=== PATIENT | female | born 1955 | race Hispanic/Latino ===

== ENCOUNTER 2017-09-24 10:53 | Inpatient (IN) | payer MEDICARE ==
[2017-09-24 11:08] VITALS: BMI 21.9
[2017-09-24] MEDS ORDERED: Sodium Chloride 0.9% 1,000 ML IV STA ×2 (11:56→16:32)
[2017-09-24 13:01] LABS: BASO # 0.1 K/uL (0.0-0.2); BASO % 0.7 % (0.0-2.0); EOS % 0.4 % (0.0-4.0); HEMOGLOBIN 10.4 g/dL (12.0-16.0); LYMPH # 0.6 K/uL (1.0-4.3); LYMPH % 6.1 % (20.0-40.0); MEAN CELL VOLUME 87.6 fl (81.0-99.0); MEAN CORPUSCULAR HEMOGLOBIN 29.4 pg (27.0-31.0); MEAN CORPUSCULAR HGB CONC 33.6 g/dL (33.0-37.0); MEAN PLATELET VOLUME 7.5 fl (7.2-11.7); MONO # 1.3 K/uL (0.0-0.8); MONO % 13.6 % (0.0-10.0); NEUT # 7.4 K/uL (1.8-7.0); NEUT % 79.2 % (50.0-75.0); NRBC % 0.1 % (0.0-0.0); PLATELET COUNT 312 K/uL (130-400); RBC 3.53 Mil/uL (3.80-5.20); RED CELL DISTRIBUTION WIDTH 17.7 % (11.5-14.5); WHITE BLOOD COUNT 9.3 K/uL (4.8-10.8)
[2017-09-24 13:14] LABS: ALBUMIN 3.1 g/dL (3.5-5.0); ALT/SGPT 33 U/L (9-52); AST/SGOT 51 U/L (14-36); BLOOD UREA NITROGEN 5 mg/dl (7-17); CALCIUM 9.9 mg/dL (8.4-10.2); GFR AFRICAN-AMERICAN > 60; GFR NON-AFRICAN AMERICAN > 60
--- NOTE | 2017-09-24 13:14 | RAD ---
HISTORY: Confusion COMPARISON: No prior. FINDINGS: A right-sided MediPort catheter identified placed this entry in the right atrium. LUNGS: A large mass is seen the left perihilar/ suprahilar space with underlying airspace disease not completely excluded. Medial basilar airspace disease is also in question. None is seen the right. PLEURA: No significant pleural effusion identified, no pneumothorax apparent. CARDIOVASCULAR: Cardiomegaly versus technical magnification with the latter likely. OSSEOUS STRUCTURES: No significant abnormalities. VISUALIZED UPPER ABDOMEN: Normal. OTHER FINDINGS: None. IMPRESSION: Airspace disease is questioned related to the medial left base and potentially underlying a left perihilar/suprahilar mass. Remaining lung pedersen are clear. Potential cardiomegaly. MediPort catheter in position at the right chest.
[2017-09-24 13:19] LABS: INR 1.2 (0.9-1.2); PARTIAL THROMBOPLASTIN TIME 31.2 Seconds (25.6-37.1); PROTHROMBIN TIME 13.5 Seconds (9.8-13.1)
[2017-09-24 13:26] LABS: ALB/GLOB RATIO 1.1 (1.0-2.1)
[2017-09-24] MEDS ORDERED: Potassium Chloride 20 mEq ER Tab PO STA (13:26)
[2017-09-24] MEDS ORDERED: Iodixanol 320 MG/ML 100 ML BOTTLE IV ONE (13:32)
[2017-09-24] MEDS ORDERED: Sodium Chloride 0.9% 50 ML IV ONE (13:33)
[2017-09-24] MEDS ORDERED: Potassium Chloride 20 mEq ER Tab PO ONE (13:36)
--- NOTE | 2017-09-24 13:50 | ED PDOC ---
HPI: Altered Mental Status Time Seen by Provider: 09/24/17 11:27 Chief Complaint (Nursing): Altered Mental Status Chief Complaint (Provider): metastastic lung cancer History Per: Patient, Family History/Exam Limitations: Other (poor historians ) Onset/Duration Of Symptoms: Days (3 days ago) Current Symptoms Are (Timing): Still Present Additional Complaint(s): 61 y/o female, here with family, has a history of lung cancer, presents to the ED complaining of abdominal pain, onset of 3 days ago. Of note, cancer has metastasize to the brain and stomach. Patient recently moved up from [place] to be with family members, and state that the patient has generally been "feeling bad, is confused more so than before, and has been falling". The patient has also had chemotherapy sessions in the past, but no longer continues with chemotherapy. NIHSS Stroke Scale - Date/Time Evaluation Performed Date Performed: 09/24/17 Time Performed: 11:27 When Was NIHSS Performed: Baseline - How Severe is the Stroke Level of Consciousness: 0=Alert LOC to Questions: 0=Both comments correct LOC to commands: 0=Obeys both correctly Best Gaze: 0=Normal Visual: 0=No visual loss Facial: 0=Normal Motor Arm - Left: 0=No drift Motor Arm - Right: 0=No drift Motor Leg - Left: 0=No drift Motor Leg - Right: 0=No drift Limb Ataxia: 0=Absent Sensory: 0=Normal Best Language: 0=No aphasia Dysarthia: 0=Normal articulation Extinction & Inattention (Neglect): 0=Normal, no object Score: 0 Past Medical History Reviewed: Historical Data, Nursing Documentation, Vital Signs Vital Signs: Last Vital Signs Temp 98.4 F 09/24/17 11:08 Pulse 85 09/24/17 11:08 Resp 17 09/24/17 11:08 BP 88/63 L 09/24/17 11:08 Pulse Ox - Medical History PMH: Anxiety, Depression, Pneumonia Denies: Diabetes, Hepatitis, HIV, HTN, Seizures, Sexually Transmitted Disease Other PMH: lung cancer - Surgical History Other surgeries: Yes: left wrist surgery;port-a-cath insertion. - Family History Family History: States: Unknown Family Hx - Living Arrangements Living Arrangements: With Family - Social History Current smoker - smoking cessation education provided: Yes (heavy smoker) SMOKER/PACKS PER DAY:: 10 (more than 10 cigarettes daily) Alcohol: Social Drugs: Denies - Immunization History Hx Tetanus Toxoid Vaccination: No Hx Influenza Vaccination: No Hx Pneumococcal Vaccination: No - Home Medications Home Medications: Ambulatory Orders Medication Instructions Recorded Alprazolam [Xanax] 0.25 mg PO BID 09/24/17 Citalopram [celeXA] 10 mg PO TID 09/24/17 Clonazepam [Klonopin] 1 mg PO TID 09/24/17 Dexamethasone [Decadron] 4 mg PO Q6 09/24/17 Propranolol HCl 10 mg PO BID 09/24/17 QUEtiapine [SEROquel] 100 mg PO HS 09/24/17 Trazodone HCl 150 mg PO HS 09/24/17 traMADol [Ultram] 50 mg PO BID PRN 09/24/17 - Allergies Allergies/Adverse Reactions: Allergies Allergy/AdvReac Type Severity Reaction Status Date / Time No Known Allergies Allergy Verified 12/21/16 13:35 Review of Systems ROS Statement: Except As Marked, All Systems Reviewed And Found Negative Constitutional: Positive for: Weakness Gastrointestinal: Positive for: Abdominal Pain (generalized) Neurological: Positive for: Confusion Physical Exam - Reviewed Nursing Documentation Reviewed: Yes Vital Signs Reviewed: Yes - Physical Exam Appears: Positive for: Non-toxic, No Acute Distress Head Exam: Positive for: ATRAUMATIC, NORMAL INSPECTION, NORMOCEPHALIC Skin: Positive for: Normal Color, Warm Eye Exam: Positive for: Normal appearance, EOMI, PERRL ENT: Positive for: Normal ENT Inspection Neck: Positive for: Normal, Painless ROM, Supple Cardiovascular/Chest: Positive for: Regular Rate, Rhythm. Negative for: Murmur Respiratory: Positive for: Normal Breath Sounds. Negative for: Respiratory Distress Gastrointestinal/Abdominal: Positive for: Normal Exam, Soft, Tenderness ( generalized) Back: Positive for: Normal Inspection Extremity: Positive for: Normal ROM. Negative for: Pedal Edema, Deformity Neurologic/Psych: Positive for: Alert, Oriented. Negative for: Motor/Sensory Deficits - Laboratory Results Result Diagrams: 09/24/17 12:40 09/25/17 06:28 - ECG Pulse Ox Interpretation: Normal Medical Decision Making Medical Decision Making: Time: --12:01 Impression: --Chronic pain in setting of metastatic lung cancer Plan: --CT ABD &Pelvis w/ IV contrast --CT Angio Chest PE Protocol --CT head w/o contrast --EKG --Ed Urine Dip --Labs --IV Fluids --Glucose, blood, POC --Urinalysis Portable Chest X-Ray FINDINGS: A right-sided MediPort catheter identified placed this entry in the right atrium. LUNGS: A large mass is seen the left perihilar/ suprahilar space with underlying airspace disease not completely excluded. Medial basilar airspace disease is also in question. None is seen the right. PLEURA: No significant pleural effusion identified, no pneumothorax apparent. CARDIOVASCULAR: Cardiomegaly versus technical magnification with the latter likely. OSSEOUS STRUCTURES: No significant abnormalities. VISUALIZED UPPER ABDOMEN: Normal. OTHER FINDINGS: None. IMPRESSION: Airspace disease is questioned related to the medial left base and potentially underlying a left perihilar/suprahilar mass. Remaining lung pedersen are clear. Potential cardiomegaly. MediPort catheter in position at the right chest. Time: 15:00 Patient will be signed out to Dr. Juan Arauz, pending CT and reevaluation. Scribe Attestation: Documented by Fabian Bustillo and Ashly Fox acting as scribes for Latha Cardona MD. Provider Scribe Attestation: All medical record entries made by the Scribe were at my direction and personally dictated by me. I have reviewed the chart and agree that the record accurately reflects my personal performance of the history, physical exam, medical decision making, and the department course for this patient. I have also personally directed, reviewed, and agree with the discharge instructions and disposition. Disposition - Clinical Impression Clinical Impression: Dehydration, Hypokalemia, Hypoxia, Metastatic lung cancer (metastasis from lung to other site), Anemia, Lung cancer - Patient ED Disposition Is Patient to be Admitted: Transfer of Care - Disposition Disposition: Transfer of Care Disposition Time: 15:00 Condition: FAIR Patient Signed Over To: Juan Arauz (Pending CT)
[2017-09-24 14:26] LABS: ANISOCYTOSIS SLIGHT; EOSINOPHIL 1 % (0-7); HYPOCHROMIC SLIGHT; LYMPHOCYTE 2 % (20-50); MONOCYTE 14 % (0-10); NEUTROPHIL 83 % (42-75); OVALOCYTES SLIGHT; PLATELET ESTIMATE NORMAL (NORMAL); SCHISTOCYTES SLIGHT; TOTAL CELLS COUNTED 100
[2017-09-24 14:27] LABS: TEARDROP CELLS SLIGHT
--- NOTE | 2017-09-24 14:50 | CT ---
PROCEDURE: CT HEAD WITHOUT CONTRAST. HISTORY: Met lung CA, confusion COMPARISON: None available. TECHNIQUE: Axial computed tomography images were obtained through the head/brain without intravenous contrast. Radiation dose: Total exam DLP = 637.25 mGy-cm. This CT exam was performed using one or more of the following dose reduction techniques: Automated exposure control, adjustment of the mA and/or kV according to patient size, and/or use of iterative reconstruction technique. FINDINGS: HEMORRHAGE: No intracranial hemorrhage. BRAIN: Widespread cerebral abnormality is identified including diffusely decreased white matter density throughout the vast majority of the cerebral hemispheres, vasogenic in appearance and not cytotoxic. However, a discrete mass is not clearly identified on this unenhanced examination with the exception of the left frontal parietal vertex laterally where it a 2.3 by 1.4 cm mildly hyperdense lesions identified suspicious for possible dural mass. Lucency may also present in the white matter of the brainstem. Alternately, this may be represent a cortical mass. Consider possible post radiation change. Without a history of radiation therapy to the brain, other etiologies such as PRES, toxic metabolic encephalopathy, PML, demyelination and immunodeficiency syndromes should be considered. There is no apparent mass effect with widespread metastases or ischemia not favored. VENTRICLES: Unremarkable. No hydrocephalus. CALVARIUM: Unremarkable. PARANASAL SINUSES: Unremarkable as visualized. No significant inflammatory changes. MASTOID AIR CELLS: Unremarkable as visualized. No inflammatory changes. OTHER FINDINGS: None. IMPRESSION: Grossly abnormal white matter changes seen throughout the cerebrum and appear to spare the cerebellum. A hyperdense mass is seen the left parietal vertex measuring 2.3 cm greatest dimension. Please see differential diagnosis above. No definite intracranial hemorrhage or hydrocephalus. No definite pattern suggest acute separate brain infarction.
--- NOTE | 2017-09-24 15:22 | CT ---
PROCEDURE: CT Chest with contrast (Pulmonary Angiogram) HISTORY: SOB, met lung CA COMPARISON: None available. TECHNIQUE: Axial computed tomography images were obtained of the chest in the pulmonary arterial phase of enhancement. Coronal and sagittal reformatted images were created and reviewed. Intravenous contrast dose: Visipaque 320, 98 cc Radiation dose: Total exam DLP = 244.41 mGy-cm. This CT exam was performed using one or more of the following dose reduction techniques: Automated exposure control, adjustment of the mA and/or kV according to patient size, and/or use of iterative reconstruction technique. FINDINGS: PULMONARY ARTERIES: No CT evidence of pulmonary embolus bilaterally. Proximal branches of the left upper and lower lobe pulmonary arteries appear at least partially encased by left hilar/mediastinal tumor. AORTA: No aneurysm appreciated. LUNGS: Bilateral basilar dependent atelectasis is appreciated as well as mild left lower lobe compression atelectasis from left pleural effusion. Fibrotic changes seen at the bilateral upper lobes greater the left and right sides including left upper lobe and left lower lobe superior segment honeycombing with emphysematous changes diffusely seen bilaterally but apical predominant. The overall pattern is compatible COPD. Left mainstem bronchus as well as upper and lower lobe proximal segments are encased by tumor/ aggregate lymphadenopathy under clear in the lumen. The trachea is deviated toward the right slightly and otherwise appears unremarkable. PLEURAL SPACES: There is a [id number] left pleural effusion with none appreciated at the right. HEART: There is mild cardiomegaly and a moderate pericardial effusion identified. The thoracic aorta is normal in caliber. There is a large mass with an epicenter at the medial left upper lobe measuring 9.4 x 9.1 x 8.8 cm (transverse by anteroposterior by superoinferior dimensions) at least, insinuating into the aortopulmonary window and abutting the mid to distal superior vena cava at its medial margins extending to and abut the anterior mediastinal fat at its left-sided margin extending inferiorly to but the superior-most margins of the heart. Mediastinal lymphadenopathy is likely included in this likely tissue aggregate was also seen in the peritracheal space including multiple peritracheal lymph nodes which measure a few cm in greatest dimension. For instance there is a 1.9 x 81.3 is 3 cm inferior pretracheal lymph node and likely a sub carinal lymph node measuring at least 1.4 cm greatest dimension. The mass displaces the upper mediastinum slightly toward the right. LYMPH NODES: As above. BONES, CHEST WALL: Unremarkable. No fracture or destructive lesion OTHER FINDINGS: A right-sided MediPort is in position terminating at the cavoatrial junction. For upper abdomen findings are included in separate abdomen pelvis CT examination also performed 09/24/2017. IMPRESSION: 1. No CT evidence to suggest pulmonary embolus. 2. A 9.5 cm left perihilar/mediastinal mass is identified extending into the mediastinum encasing the proximal left upper and lower lobe central airways as well as central pulmonary arteries with draining pulmonary veins less involved somewhat. There is extensive mediastinal and lymphadenopathy subtle which is likely aggregated into this dominant mass. Limited upper mediastinal shift to the right. 3. Extensive COPD with underlying infiltrate difficult to exclude at the dependent right upper lobe.
--- NOTE | 2017-09-24 15:34 | ED PDOC ---
- Laboratory Results Result Diagrams: 09/24/17 12:40 09/24/17 12:40 Medical Decision Making Medical Decision Making: Time: 15:00 Patient is signed to me by Dr. Latha Cardona, pending CT and reevaluation. CT Abdomen and Pelvis with contrast FINDINGS: Contrast-enhancement is in the renal excretory phase limiting the examination. LOWER THORAX: Included in chest CT examination performed 09/24/2017 as well. Please see separate report. LIVER: 1.2 cm lesion is seen in the dome of the liver anteriorly measuring 55 Hounsfield units. Additional lucencies are not clearly identified over difficult to exclude. Follow-up abdomen ultrasound or repeat CT with contrast is recommended for better characterization of the hepatic parenchyma. Overall size of the liver is normal. No gross intrahepatic biliary dilatation identified. GALLBLADDER AND BILE DUCTS: Unremarkable. PANCREAS: Unremarkable. No gross lesion or ductal dilatation. SPLEEN: A tiny cyst in the lower pole left kidney. Intermediate density lesion is seen in the midpole left kidney anteriorly measuring 60 Hounsfield units suspicious for proteinaceous cyst or solid mass. ADRENALS: 1.3 cm nodule seen at the left renal gland measuring 8 Hounsfield units compatible with benign adrenal adenoma. Right adrenal gland appears unremarkable. KIDNEYS AND URETERS: A tiny cyst in the lower pole left kidney. Intermediate density lesion is seen in the midpole left kidney anteriorly measuring 60 Hounsfield units suspicious for proteinaceous cyst or solid mass. No obstructive uropathy bilaterally or definitive perinephric reaction. VASCULATURE: Unremarkable. No aortic aneurysm. BOWEL: Unremarkable. No obstruction. No gross mural thickening. Lack oral contrast limits evaluation of the bowel with the stomach collapse. APPENDIX: Normal appendix. PERITONEUM: Unremarkable. NoThere multiple small masses scattered throughout the upper mid abdomen with larger mass identified in the lower abdomen and left hemipelvis bowel Mesentery compatible with metastatic disease. A 5.1 x 4.4 cm mass in the right lower quadrant mesenteric with probable central necrosis is similar larger masses seen at the left pelvis measuring 7.2 x 6.0 cm with additional smaller masses present in the peritoneal. Free fluid. No free air. LYMPH NODES: Shotty abdominal lymph nodes identified. BLADDER: Unremarkable. REPRODUCTIVE: Fibroid uterine changes are identified with minimal fluid seen the cul-de-sac. BONES: No acute fracture. OTHER FINDINGS: No fracture or disc definitive destructive bony lesion appreciable. IMPRESSION: Exam limited by a renal excretory phase of contrast enhancement, however, multifocal peritoneal metastases are appreciated the lower than greater than upper abdominopelvic mid Mesentery. No significant ascites though trace fluid is seen the cul-de-sac in the pelvis. No bowel obstruction is apparent in the segments collapse however lack of oral contrast limits interpretation. No destructive bony lesion appreciable. A small hepatic dome lesion is identified as well as at the upper pole left kidney which are poorly characterized. Left benign adrenal adenoma. Other lesser findings as discussed above. CT Head without contrast FINDINGS: HEMORRHAGE: No intracranial hemorrhage. BRAIN: Widespread cerebral abnormality is identified including diffusely decreased white matter density throughout the vast majority of the cerebral hemispheres, vasogenic in appearance and not cytotoxic. However, a discrete mass is not clearly identified on this unenhanced examination with the exception of the left frontal parietal vertex laterally where it a 2.3 by 1.4 cm mildly hyperdense lesions identified suspicious for possible dural mass. Lucency may also present in the white matter of the brainstem. Alternately, this may be represent a cortical mass. Consider possible post radiation change. Without a history of radiation therapy to the brain, other etiologies such as PRES, toxic metabolic encephalopathy, PML, demyelination and immunodeficiency syndromes should be considered. There is no apparent mass effect with widespread metastases or ischemia not favored. VENTRICLES: Unremarkable. No hydrocephalus. CALVARIUM: Unremarkable. PARANASAL SINUSES: Unremarkable as visualized. No significant inflammatory changes. MASTOID AIR CELLS: Unremarkable as visualized. No inflammatory changes. OTHER FINDINGS: None. IMPRESSION: Grossly abnormal white matter changes seen throughout the cerebrum and appear to spare the cerebellum. A hyperdense mass is seen the left parietal vertex measuring 2.3 cm greatest dimension. Please see differential diagnosis above. No definite intracranial hemorrhage or hydrocephalus. No definite pattern suggest acute separate brain infarction. CT Chest with contrast (Pulmonary Angiogram) FINDINGS: PULMONARY ARTERIES: No CT evidence of pulmonary embolus bilaterally. Proximal branches of the left upper and lower lobe pulmonary arteries appear at least partially encased by left hilar/mediastinal tumor. AORTA: No aneurysm appreciated. LUNGS: Bilateral basilar dependent atelectasis is appreciated as well as mild left lower lobe compression atelectasis from left pleural effusion. Fibrotic changes seen at the bilateral upper lobes greater the left and right sides including left upper lobe and left lower lobe superior segment honeycombing with emphysematous changes diffusely seen bilaterally but apical predominant. The overall pattern is compatible COPD. Left mainstem bronchus as well as upper and lower lobe proximal segments are encased by tumor/ aggregate lymphadenopathy under clear in the lumen. The trachea is deviated toward the right slightly and otherwise appears unremarkable. PLEURAL SPACES: There is a [id number] left pleural effusion with none appreciated at the right. HEART: There is mild cardiomegaly and a moderate pericardial effusion identified. The thoracic aorta is normal in caliber. There is a large mass with an epicenter at the medial left upper lobe measuring 9.4 x 9.1 x 8.8 cm (transverse by anteroposterior by superoinferior dimensions) at least, insinuating into the aortopulmonary window and abutting the mid to distal superior vena cava at its medial margins extending to and abut the anterior mediastinal fat at its left-sided margin extending inferiorly to but the superior-most margins of the heart. Mediastinal lymphadenopathy is likely included in this likely tissue aggregate was also seen in the peritracheal space including multiple peritracheal lymph nodes which measure a few cm in greatest dimension. For instance there is a 1.9 x 81.3 is 3 cm inferior pretracheal lymph node and likely a sub carinal lymph node measuring at least 1.4 cm greatest dimension. The mass displaces the upper mediastinum slightly toward the right. LYMPH NODES: As above. BONES, CHEST WALL: Unremarkable. No fracture or destructive lesion OTHER FINDINGS: A right-sided MediPort is in position terminating at the cavoatrial junction. For upper abdomen findings are included in separate abdomen pelvis CT examination also performed 09/24/2017. IMPRESSION: 1. No CT evidence to suggest pulmonary embolus. 2. A 9.5 cm left perihilar/mediastinal mass is identified extending into the mediastinum encasing the proximal left upper and lower lobe central airways as well as central pulmonary arteries with draining pulmonary veins less involved somewhat. There is extensive mediastinal and lymphadenopathy subtle which is likely aggregated into this dominant mass. Limited upper mediastinal shift to the right. 3. Extensive COPD with underlying infiltrate difficult to exclude at the dependent right upper lobe. Upon reevaluation, patient continues to appear confused and unable to make medical decisions. Patient does not have an advanced directive in place. Discussed with patient's family, including sister, and family believes DNI/DNR should be in place. I agree based on patient's results and clinical findings. Evaluation has revealed hypokalemia and hypotension, consistent with severe diarrhea, as well as hypoxia, which is consistent with patient's lung masses. Discussed the need for admission with patient's family, and they agree with plan for admission but request patient be admitted under Dr. Lewis (family friend) instead of Medical Services. Time: 16:[address] Lewis, who accepts the patient to his service. Patient will be admitted inpatient for terminal cancer, hypoxia, dehydration, and hypotension. Scribe Attestation: Documented by Ashly Fox, acting as a scribe for Juan Arauz MD Provider Scribe Attestation: All medical record entries made by the Scribe were at my direction and personally dictated by me. I have reviewed the chart and agree that the record accurately reflects my personal performance of the history, physical exam, medical decision making, and the department course for this patient. I have also personally directed, reviewed, and agree with the discharge instructions and disposition. Disposition Discussed With : Basilio Lewis Doctor Will See Patient In The: Hospital Counseled Patient/Family Regarding: Studies Performed, Diagnosis, Need For Followup - Clinical Impression Clinical Impression: Small cell lung cancer, Dehydration, Hypokalemia, Hypoxia, Metastatic lung cancer (metastasis from lung to other site), Anemia - POA Present On Arrival: None - Disposition Disposition: Admitted as In-Patient Disposition Time: 16:45 Condition: FAIR
--- NOTE | 2017-09-24 19:22 | CARD ---
APPROVED REPORT EKG Measurement Heart [id number] <Conclusion> Normal sinus rhythm Nonspecific T wave abnormality Abnormal ECG
[2017-09-25 07:11] LABS: BLOOD UREA NITROGEN 12 mg/dl (7-17); GFR AFRICAN-AMERICAN > 60; GFR NON-AFRICAN AMERICAN > 60
[2017-09-25] MEDS: Dextrose 5%/0.9% NS 1,000 ML IV SCH ×2 (09:00→21:24)
--- NOTE | 2017-09-25 09:08 | CP.PCM.HP ---
History of Present Illness - History of Present Illness History of Present Illness: 61 y/o female history of metastatic lung cancer and severe depression, presents to the ED complaining of abdominal pain, onset of 3 days ago. She presented in ER with family members, they states that she is confuse not oriented. Patient recently moved up from [place] to be with family members, and state that the patient has generally been "feeling bad, is confused more so than before, and has been falling". The patient has been treated wit chemotherapy. At present in bed she thinks that she is in [facility]. Complain same generalized weakness and same abdominal pain. Present on Admission - Present on Admission Any Indicators Present on Admission: No Review of Systems - Constitutional Constitutional: As Per HPI - EENT Eyes: As Per HPI - Cardiovascular Cardiovascular: As Per HPI - Respiratory Respiratory: As Per HPI - Gastrointestinal Gastrointestinal: As Per HPI - Musculoskeletal Musculoskeletal: As Per HPI - Integumentary Integumentary: As Per HPI - Neurological Neurological: As Per HPI - Psychiatric Psychiatric: As Per HPI Past Patient History - Infectious Disease Hx of Infectious Diseases: None - Past Medical History & Family History Past Medical History?: Yes - Past Social History Smoking Status: Light Smoker < 10 Cigarettes Daily - CARDIAC Hx Cardiac Disorders: No - PULMONARY Hx Pneumonia: Yes - NEUROLOGICAL Hx Seizures: No - HEMATOLOGICAL/ONCOLOGICAL Hx Human Immunodeficiency Virus (HIV): No - MUSCULOSKELETAL/RHEUMATOLOGICAL Hx Falls: Yes - GENITOURINARY/GYNECOLOGICAL Hx Sexually Transmitted Disorders: No - PSYCHIATRIC Hx Anxiety: Yes Hx Depression: Yes Hx Substance Use: No - SURGICAL HISTORY Hx Orthopedic Surgery: Yes (left wrist surgery) Other/Comment: port-a-cath insertion. - ANESTHESIA Hx Anesthesia: Yes Hx Anesthesia Reactions: No Meds Allergies/Adverse Reactions: Allergies Allergy/AdvReac Type Severity Reaction Status Date / Time No Known Allergies Allergy Verified 12/21/16 13:35 Physical Exam - Constitutional Appears: Confused, Chronically Ill - Head Exam Head Exam: ATRAUMATIC, NORMAL INSPECTION, NORMOCEPHALIC - Eye Exam Eye Exam: Normal appearance - ENT Exam ENT Exam: Mucous Membranes Moist - Neck Exam Neck exam: Positive for: Full Rom - Respiratory Exam Respiratory Exam: Decreased Breath Sounds - Cardiovascular Exam Cardiovascular Exam: REGULAR RHYTHM, +S1, +S2 - GI/Abdominal Exam GI & Abdominal Exam: Normal Bowel Sounds, Soft - Extremities Exam Extremities exam: Positive for: normal inspection - Neurological Exam Neurological exam: Altered - Psychiatric Exam Psychiatric exam: Depressed - Skin Skin Exam: Normal Color Results - Vital Signs Recent Vital Signs: Last Vital Signs Temp 98.9 F 09/25/17 08:00 Pulse 117 H 09/25/17 08:00 Resp 20 09/25/17 08:00 BP 93/50 L 09/25/17 08:00 Pulse Ox 93 L 09/25/17 08:00 - Labs Result Diagrams: 09/24/17 12:40 09/25/17 06:28 Labs: Laboratory Results - last 24 hr 09/24/17 09/24/17 09/24/17 12:27 12:40 12:40 WBC 9.3 RBC 3.53 L Hgb 10.4 L Hct 30.9 L MCV 87.6 MCH 29.4 MCHC 33.6 RDW 17.7 H Plt Count 312 MPV 7.5 Neut % (Auto) 79.2 H Lymph % (Auto) 6.1 L Tift % (Auto) 13.6 H Eos % (Auto) 0.4 Baso % (Auto) 0.7 Neut # 7.4 H Lymph # 0.6 L Tift # 1.3 H Eos # 0.0 Baso # 0.1 Neutrophils % (Manual) 83 H Lymphocytes % (Manual) 2 L Monocytes % (Manual) 14 H Eosinophils % (Manual) 1 Platelet Estimate Normal Hypochromasia (manual) Slight Anisocytosis (manual) Slight Tear Drop Cells Slight Ovalocytes Slight Schistocytes Slight PT INR APTT Sodium 136 Potassium 2.9 L Chloride 99 Carbon Dioxide 29 Anion Gap 11 BUN 5 L Creatinine 0.5 L Est GFR ( Amer) > 60 Est GFR (Non-Af Amer) > 60 POC Glucose (mg/dL) 96 Random Glucose 100 Calcium 9.9 Total Bilirubin 0.4 AST 51 H ALT 33 Alkaline Phosphatase 79 Total Protein 5.9 L Albumin 3.1 L Globulin 2.8 Albumin/Globulin Ratio 1.1 09/24/17 09/25/17 12:40 06:28 WBC RBC Hgb Hct MCV MCH MCHC RDW Plt Count MPV Neut % (Auto) Lymph % (Auto) Tift % (Auto) Eos % (Auto) Baso % (Auto) Neut # Lymph # Tift # Eos # Baso # Neutrophils % (Manual) Lymphocytes % (Manual) Monocytes % (Manual) Eosinophils % (Manual) Platelet Estimate Hypochromasia (manual) Anisocytosis (manual) Tear Drop Cells Ovalocytes Schistocytes PT 13.5 H INR 1.2 APTT 31.2 Sodium 140 Potassium 4.6 Chloride 99 Carbon Dioxide 28 Anion Gap 18 BUN 12 Creatinine 0.6 L Est GFR ( Amer) > 60 Est GFR (Non-Af Amer) > 60 POC Glucose (mg/dL) Random Glucose 196 H Calcium 10.0 Total Bilirubin AST ALT Alkaline Phosphatase Total Protein Albumin Globulin Albumin/Globulin Ratio Assessment & Plan (1) Delirium Status: Acute (2) Anemia Status: Acute (3) Dehydration Status: Acute (4) Hypokalemia Status: Acute (5) Hypoxia Status: Acute (6) Lung cancer Status: Chronic (7) Metastatic lung cancer (metastasis from lung to other site) Status: Chronic (8) Small cell lung cancer Status: Chronic (9) Brain metastasis Status: Chronic (10) Depression Status: Chronic - Assessment and Plan (Free Text) Plan: As per orders.
[2017-09-25] MEDS: Morphine 4 MG/ML VIAL IVP PRN (16:17)
[2017-09-25] MEDS ORDERED: Morphine 4 MG/ML VIAL IVP STA (17:49)
[2017-09-26] MEDS: Morphine 4 MG/ML VIAL IVP PRN (00:06)
[2017-09-26] MEDS: Dextrose 5%/0.9% NS 1,000 ML IV SCH (11:31)
--- NOTE | 2017-09-26 12:29 | CP.PCM.PN ---
Subjective - Date & Time of Evaluation Date of Evaluation: 09/26/17 Time of Evaluation: 12:30 - Subjective Subjective: At times still in delirium, this appears to be related to organic cause (mets). Will "modulate" meds for the best control of her condition. Still on 1:1 for her safety. Objective - Vital Signs/Intake and Output Vital Signs (last 24 hours): Temp Pulse Resp BP Pulse Ox 98 F 102 H 18 116/69 95 09/26/17 08:55 09/26/17 08:55 09/26/17 08:55 09/26/17 08:55 09/26/17 08:55 - Medications Medications: Current Medications Citalopram Hydrobromide (Celexa) 20 mg PO TID [facility] Clonazepam (Klonopin) 1 mg PO TID [facility] Last Admin: 09/26/17 12:02 Dose: 1 mg Dexamethasone (Decadron) 4 mg PO Q12 [facility] Fentanyl (Duragesic) 1 patch TD Q3D [facility] PRN Reason: Protocol Last Admin: 09/26/17 11:27 Dose: 1 patch Morphine Sulfate (Morphine) 1 mg IVP Q4 PRN PRN Reason: Pain, severe (8-10) Last Admin: 09/26/17 00:06 Dose: 1 mg Quetiapine Fumarate (Seroquel) 100 mg PO BID [facility] Last Admin: 09/26/17 11:32 Dose: Not Given Tramadol HCl (Ultram) 50 mg PO BID PRN PRN Reason: Pain, moderate (4-7) Trazodone HCl (Desyrel) 150 mg PO HS [facility] Last Admin: 09/25/17 21:19 Dose: 150 mg - Labs Labs: 09/24/17 12:40 09/25/17 06:28 PT 13.5 Seconds (9.8-13.1) H 09/24/17 12:40 INR 1.2 (0.9-1.2) 09/24/17 12:40 APTT 31.2 Seconds (25.6-37.1) 09/24/17 12:40 - Constitutional Appears: Agitated, Confused, Chronically Ill - Head Exam Head Exam: ATRAUMATIC, NORMAL INSPECTION, NORMOCEPHALIC - Eye Exam Eye Exam: Normal appearance - Neck Exam Neck Exam: Full ROM - Respiratory Exam Respiratory Exam: Decreased Breath Sounds - Cardiovascular Exam Cardiovascular Exam: Tachycardia, REGULAR RHYTHM, +S1, +S2 - GI/Abdominal Exam GI & Abdominal Exam: Normal Bowel Sounds - Neurological Exam Neurological Exam: Alert - Psychiatric Exam Psychiatric exam: Agitated, Anxious - Skin Skin Exam: Pallor Assessment and Plan (1) Delirium Status: Acute (2) Anemia Status: Acute (3) Dehydration Status: Acute (4) Hypokalemia Status: Acute (5) Hypoxia Status: Acute (6) Lung cancer Status: Chronic (7) Metastatic lung cancer (metastasis from lung to other site) Status: Chronic (8) Small cell lung cancer Status: Chronic (9) Brain metastasis Status: Chronic (10) Depression Status: Chronic - Assessment and Plan (Free Text) Plan: Continue present rx.
[2017-09-27] MEDS ORDERED: Dextrose 5%/0.9% NS 1,000 ML IV SCH (12:45)
--- NOTE | 2017-09-27 14:45 | CP.PCM.PN ---
Subjective - Date & Time of Evaluation Date of Evaluation: 09/27/17 Time of Evaluation: 14:46 - Subjective Subjective: Patient confuse with poor oral intake. Objective - Vital Signs/Intake and Output Vital Signs (last 24 hours): Temp Pulse Resp BP Pulse Ox 98.1 F 110 H 20 107/62 92 L 09/27/17 12:00 09/27/17 13:30 09/27/17 12:00 09/27/17 12:00 09/27/17 13:30 - Medications Medications: Current Medications Citalopram Hydrobromide (Celexa) 20 mg PO DAILY [facility] Clonazepam (Klonopin) 1 mg PO TID [facility] Last Admin: 09/27/17 13:17 Dose: Not Given Dexamethasone (Decadron) 4 mg PO Q12 [facility] Last Admin: 09/27/17 09:46 Dose: 4 mg Fentanyl (Duragesic) 1 patch TD Q3D [facility] PRN Reason: Protocol Last Admin: 09/26/17 11:27 Dose: 1 patch Dextrose/Sodium Chloride (Dextrose 5%/0.9% Ns 1000 Ml) 1,000 mls @ 75 mls/hr IV .[id number] [facility] Stop: 09/28/17 12:36 Morphine Sulfate (Morphine) 1 mg IVP Q4 PRN PRN Reason: Pain, severe (8-10) Last Admin: 09/26/17 00:06 Dose: 1 mg Quetiapine Fumarate (Seroquel) 100 mg PO BID [facility] Last Admin: 09/27/17 09:48 Dose: 100 mg Tramadol HCl (Ultram) 50 mg PO BID PRN PRN Reason: Pain, moderate (4-7) Trazodone HCl (Desyrel) 150 mg PO [facility] Last Admin: 09/26/17 22:35 Dose: 150 mg - Labs Labs: 09/24/17 12:40 09/25/17 06:28 PT 13.5 Seconds (9.8-13.1) H 09/24/17 12:40 INR 1.2 (0.9-1.2) 09/24/17 12:40 APTT 31.2 Seconds (25.6-37.1) 09/24/17 12:40 - Constitutional Appears: Confused, Chronically Ill - Head Exam Head Exam: ATRAUMATIC, NORMAL INSPECTION, NORMOCEPHALIC - Eye Exam Eye Exam: Normal appearance - ENT Exam ENT Exam: Mucous Membranes Dry - Neck Exam Neck Exam: Full ROM - Respiratory Exam Respiratory Exam: Decreased Breath Sounds - Cardiovascular Exam Cardiovascular Exam: REGULAR RHYTHM, +S1, +S2 - GI/Abdominal Exam GI & Abdominal Exam: Normal Bowel Sounds - Extremities Exam Extremities Exam: Normal Inspection - Neurological Exam Neurological Exam: Altered - Psychiatric Exam Psychiatric exam: Anxious Assessment and Plan (1) Delirium Status: Acute (2) Anemia Status: Acute (3) Dehydration Status: Acute (4) Hypokalemia Status: Acute (5) Hypoxia Status: Acute (6) Lung cancer Status: Chronic (7) Metastatic lung cancer (metastasis from lung to other site) Status: Chronic (8) Small cell lung cancer Status: Chronic (9) Brain metastasis Status: Chronic (10) Depression Status: Chronic (11) Failure to thrive Status: Acute - Assessment and Plan (Free Text) Plan: Continue present rx.
[2017-09-27] MEDS: Dextrose 5%/0.45% NS 1,000 ML IV SCH (15:30)
[2017-09-28] MEDS: Dextrose 5%/0.45% NS 1,000 ML IV SCH ×2 (06:11→18:25)
[2017-09-28 06:33] LABS: BLOOD UREA NITROGEN 4 mg/dl (7-17); CALCIUM 9.4 mg/dL (8.4-10.2); GFR AFRICAN-AMERICAN > 60; GFR NON-AFRICAN AMERICAN > 60
[2017-09-28] MEDS: Potassium Chloride 20 mEq/15 ml LIQ UD PO SCH (13:02)
--- NOTE | 2017-09-28 13:50 | CP.PCM.PN ---
Subjective - Date & Time of Evaluation Date of Evaluation: 09/28/17 Time of Evaluation: 13:50 - Subjective Subjective: Condition unchanged Objective - Vital Signs/Intake and Output Vital Signs (last 24 hours): Temp Pulse Resp BP Pulse Ox 97.8 F 96 H 18 103/62 93 L 09/28/17 12:39 09/28/17 12:39 09/28/17 12:39 09/28/17 12:39 09/28/17 12:39 - Medications Medications: Current Medications Citalopram Hydrobromide (Celexa) 20 mg PO DAILY [facility] Last Admin: 09/28/17 09:33 Dose: 20 mg Clonazepam (Klonopin) 1 mg PO TID [facility] Last Admin: 09/28/17 13:02 Dose: 1 mg Dexamethasone (Decadron) 4 mg PO Q12 [facility] Last Admin: 09/28/17 09:33 Dose: 4 mg Fentanyl (Duragesic) 1 patch TD Q3D [facility] PRN Reason: Protocol Last Admin: 09/26/17 11:27 Dose: 1 patch Dextrose/Sodium Chloride (Dextrose 5%/0.45% Ns 1000 Ml) 1,000 mls @ 85 mls/hr IV .[id number] [facility] Stop: 09/28/17 15:07 Last Admin: 09/28/17 06:11 Dose: 85 mls/hr Morphine Sulfate (Morphine) 1 mg IVP Q4 PRN PRN Reason: Pain, severe (8-10) Last Admin: 09/26/17 00:06 Dose: 1 mg Potassium Chloride (Potassium Chloride Oral Soln) 20 meq PO BID [facility] Last Admin: 09/28/17 13:02 Dose: 20 meq Quetiapine Fumarate (Seroquel) 100 mg PO BID [facility] Last Admin: 09/28/17 09:33 Dose: 100 mg Tramadol HCl (Ultram) 50 mg PO BID PRN PRN Reason: Pain, moderate (4-7) Trazodone HCl (Desyrel) 150 mg PO HS [facility] Last Admin: 09/27/17 21:53 Dose: 150 mg - Labs Labs: 09/24/17 12:40 09/28/17 05:53 PT 13.5 Seconds (9.8-13.1) H 09/24/17 12:40 INR 1.2 (0.9-1.2) 09/24/17 12:40 APTT 31.2 Seconds (25.6-37.1) 09/24/17 12:40 - Constitutional Appears: Confused, Chronically Ill - Head Exam Head Exam: ATRAUMATIC, NORMAL INSPECTION, NORMOCEPHALIC - Neck Exam Neck Exam: Full ROM - Respiratory Exam Respiratory Exam: Decreased Breath Sounds - Cardiovascular Exam Cardiovascular Exam: REGULAR RHYTHM, +S1, +S2 - GI/Abdominal Exam GI & Abdominal Exam: Normal Bowel Sounds - Neurological Exam Neurological Exam: Altered - Psychiatric Exam Psychiatric exam: Anxious, Depressed - Skin Skin Exam: Pallor Assessment and Plan (1) Delirium Status: Acute (2) Anemia Status: Acute (3) Dehydration Status: Acute (4) Hypokalemia Status: Acute (5) Hypoxia Status: Acute (6) Lung cancer Status: Chronic (7) Metastatic lung cancer (metastasis from lung to other site) Status: Chronic (8) Small cell lung cancer Status: Chronic (9) Brain metastasis Status: Chronic (10) Depression Status: Chronic (11) Failure to thrive Status: Acute - Assessment and Plan (Free Text) Plan: Continue present rx.
[2017-09-29 06:40] LABS: BLOOD UREA NITROGEN 4 mg/dl (7-17); CALCIUM 9.7 mg/dL (8.4-10.2); GFR AFRICAN-AMERICAN > 60; GFR NON-AFRICAN AMERICAN > 60
[2017-09-29] MEDS: Potassium Chloride 20 mEq/15 ml LIQ UD PO SCH ×2 (11:55→17:28)
[2017-09-29] MEDS ORDERED: Potassium Chloride 20 mEq ER Tab PO ONE (13:07)
--- NOTE | 2017-09-29 13:11 | CP.PCM.PN ---
Subjective - Date & Time of Evaluation Date of Evaluation: 09/29/17 Time of Evaluation: 13:11 - Subjective Subjective: No new changes, comfortable. Objective - Vital Signs/Intake and Output Vital Signs (last 24 hours): Temp Pulse Resp BP Pulse Ox 97.4 F L 103 H 18 115/64 89 L 09/29/17 12:00 09/29/17 12:00 09/29/17 12:00 09/29/17 12:00 09/29/17 12:00 - Medications Medications: Current Medications Citalopram Hydrobromide (Celexa) 20 mg PO DAILY [facility] Last Admin: 09/29/17 09:25 Dose: 20 mg Clonazepam (Klonopin) 1 mg PO TID [facility] Last Admin: 09/29/17 13:08 Dose: 1 mg Dexamethasone (Decadron) 4 mg PO Q12 [facility] Last Admin: 09/29/17 09:25 Dose: 4 mg Morphine Sulfate (Morphine) 1 mg IVP Q4 PRN PRN Reason: Pain, severe (8-10) Last Admin: 09/26/17 00:06 Dose: 1 mg Potassium Chloride (Potassium Chloride Oral Soln) 20 meq PO BID [facility] Last Admin: 09/29/17 11:55 Dose: 20 meq Potassium Chloride (K-Dur 20 Meq Er Tab) 40 meq PO ONCE ONE Stop: 09/29/17 13:08 Quetiapine Fumarate (Seroquel) 100 mg PO BID [facility] Last Admin: 09/29/17 09:25 Dose: 100 mg Tramadol HCl (Ultram) 50 mg PO BID PRN PRN Reason: Pain, moderate (4-7) Trazodone HCl (Desyrel) 150 mg PO HS [facility] Last Admin: 09/28/17 22:25 Dose: 150 mg - Labs Labs: 09/24/17 12:40 09/29/17 05:00 PT 13.5 Seconds (9.8-13.1) H 09/24/17 12:40 INR 1.2 (0.9-1.2) 09/24/17 12:40 APTT 31.2 Seconds (25.6-37.1) 09/24/17 12:40 - Constitutional Appears: Confused, Chronically Ill - Head Exam Head Exam: ATRAUMATIC, NORMAL INSPECTION, NORMOCEPHALIC - Eye Exam Eye Exam: Normal appearance - ENT Exam ENT Exam: Mucous Membranes Moist - Neck Exam Neck Exam: Full ROM - Respiratory Exam Respiratory Exam: Decreased Breath Sounds - Cardiovascular Exam Cardiovascular Exam: REGULAR RHYTHM, +S1, +S2 - GI/Abdominal Exam GI & Abdominal Exam: Normal Bowel Sounds - Neurological Exam Neurological Exam: Altered, Awake - Psychiatric Exam Psychiatric exam: Depressed - Skin Skin Exam: Pallor Assessment and Plan (1) Delirium Status: Acute (2) Anemia Status: Acute (3) Dehydration Status: Acute (4) Hypokalemia Status: Acute (5) Hypoxia Status: Acute (6) Lung cancer Status: Chronic (7) Metastatic lung cancer (metastasis from lung to other site) Status: Chronic (8) Small cell lung cancer Status: Chronic (9) Brain metastasis Status: Chronic (10) Depression Status: Chronic (11) Failure to thrive Status: Acute - Assessment and Plan (Free Text) Plan: Continue present rx.
[2017-09-29] MEDS: Dextrose 5%/0.45% NS 1,000 ML IV SCH (21:51)
[2017-09-30] MEDS: Potassium Chloride 20 mEq/15 ml LIQ UD PO SCH ×2 (09:21→16:38)
[2017-09-30] MEDS: Dextrose 5%/0.45% NS 1,000 ML IV SCH (09:22)
--- NOTE | 2017-09-30 09:59 | CP.PCM.PN ---
Subjective - Date & Time of Evaluation Date of Evaluation: 09/30/17 Time of Evaluation: 09:59 - Subjective Subjective: No new changes Objective - Vital Signs/Intake and Output Vital Signs (last 24 hours): Temp Pulse Resp BP Pulse Ox 97.8 F 86 18 128/74 92 L 09/30/17 09:30 09/30/17 09:30 09/30/17 09:30 09/30/17 09:30 09/30/17 09:30 - Medications Medications: Current Medications Citalopram Hydrobromide (Celexa) 20 mg PO DAILY [facility] Last Admin: 09/30/17 09:20 Dose: 20 mg Clonazepam (Klonopin) 1 mg PO TID [facility] Last Admin: 09/30/17 09:20 Dose: 1 mg Dexamethasone (Decadron) 4 mg PO Q12 [facility] Last Admin: 09/30/17 09:21 Dose: 4 mg Fentanyl (Duragesic) 1 patch TD Q3D [facility] PRN Reason: Protocol Last Admin: 09/29/17 22:08 Dose: 1 patch Dextrose/Sodium Chloride (Dextrose 5%/0.45% Ns 1000 Ml) 1,000 mls @ 75 mls/hr IV .[id number] [facility] Stop: 09/30/17 19:26 Last Admin: 09/30/17 09:22 Dose: 75 mls/hr Morphine Sulfate (Morphine) 1 mg IVP Q4 PRN PRN Reason: Pain, severe (8-10) Last Admin: 09/26/17 00:06 Dose: 1 mg Potassium Chloride (Potassium Chloride Oral Soln) 20 meq PO BID [facility] Last Admin: 09/30/17 09:21 Dose: 20 meq Quetiapine Fumarate (Seroquel) 100 mg PO BID [facility] Last Admin: 09/30/17 09:20 Dose: 100 mg Tramadol HCl (Ultram) 50 mg PO BID PRN PRN Reason: Pain, moderate (4-7) Trazodone HCl (Desyrel) 150 mg PO HS [facility] Last Admin: 09/29/17 21:47 Dose: 150 mg - Labs Labs: 09/24/17 12:40 09/29/17 05:00 PT 13.5 Seconds (9.8-13.1) H 09/24/17 12:40 INR 1.2 (0.9-1.2) 09/24/17 12:40 APTT 31.2 Seconds (25.6-37.1) 09/24/17 12:40 - Constitutional Appears: Confused, Chronically Ill - Head Exam Head Exam: ATRAUMATIC, NORMAL INSPECTION, NORMOCEPHALIC - ENT Exam ENT Exam: Mucous Membranes Moist - Neck Exam Neck Exam: Full ROM - Respiratory Exam Respiratory Exam: Decreased Breath Sounds - Cardiovascular Exam Cardiovascular Exam: REGULAR RHYTHM, +S1, +S2 - GI/Abdominal Exam GI & Abdominal Exam: Normal Bowel Sounds - Extremities Exam Extremities Exam: Normal Inspection - Neurological Exam Neurological Exam: Altered, Awake - Psychiatric Exam Psychiatric exam: Anxious, Depressed - Skin Skin Exam: Pallor Assessment and Plan (1) Delirium Status: Acute (2) Anemia Status: Acute (3) Dehydration Status: Acute (4) Hypokalemia Status: Acute (5) Hypoxia Status: Acute (6) Lung cancer Status: Chronic (7) Metastatic lung cancer (metastasis from lung to other site) Status: Chronic (8) Small cell lung cancer Status: Chronic (9) Brain metastasis Status: Chronic (10) Depression Status: Chronic (11) Failure to thrive Status: Acute
[2017-10-01 07:22] LABS: HEMOGLOBIN 10.1 g/dL (12.0-16.0); MEAN CELL VOLUME 87.9 fl (81.0-99.0); MEAN CORPUSCULAR HEMOGLOBIN 28.1 pg (27.0-31.0); RBC 3.59 Mil/uL (3.80-5.20); RED CELL DISTRIBUTION WIDTH 17.5 % (11.5-14.5); WHITE BLOOD COUNT 9.7 K/uL (4.8-10.8)
[2017-10-01 07:46] LABS: BLOOD UREA NITROGEN 6 mg/dl (7-17); CALCIUM 9.8 mg/dL (8.4-10.2); GFR AFRICAN-AMERICAN > 60; GFR NON-AFRICAN AMERICAN > 60
[2017-10-01] MEDS: Potassium Chloride 20 mEq/15 ml LIQ UD PO SCH (09:04)
--- NOTE | 2017-10-01 10:56 | CP.PCM.PN ---
Subjective - Date & Time of Evaluation Date of Evaluation: 10/01/17 Time of Evaluation: 10:55 - Subjective Subjective: no new changes Objective - Vital Signs/Intake and Output Vital Signs (last 24 hours): Temp Pulse Resp BP Pulse Ox 98.2 F 94 H 20 122/72 92 L 10/01/17 08:00 10/01/17 08:00 10/01/17 08:00 10/01/17 08:00 10/01/17 08:00 - Medications Medications: Current Medications Citalopram Hydrobromide (Celexa) 20 mg PO DAILY [facility] Last Admin: 10/01/17 09:01 Dose: 20 mg Clonazepam (Klonopin) 1 mg PO TID [facility] Last Admin: 10/01/17 09:00 Dose: 1 mg Dexamethasone (Decadron) 4 mg PO Q12 [facility] Last Admin: 10/01/17 09:01 Dose: 4 mg Fentanyl (Duragesic) 1 patch TD Q3D [facility] PRN Reason: Protocol Last Admin: 09/29/17 22:08 Dose: 1 patch Dextrose/Sodium Chloride (Dextrose 5%/0.45% Ns 1000 Ml) 1,000 mls @ 85 mls/hr IV .[id number] [facility] Stop: 10/02/17 10:53 Morphine Sulfate (Morphine) 1 mg IVP Q4 PRN PRN Reason: Pain, severe (8-10) Last Admin: 09/26/17 00:06 Dose: 1 mg Quetiapine Fumarate (Seroquel) 100 mg PO BID [facility] Last Admin: 10/01/17 09:01 Dose: 100 mg Tramadol HCl (Ultram) 50 mg PO BID PRN PRN Reason: Pain, moderate (4-7) Trazodone HCl (Desyrel) 150 mg PO HS [facility] Last Admin: 09/30/17 23:15 Dose: 150 mg - Labs Labs: 10/01/17 06:00 10/01/17 06:00 PT 13.5 Seconds (9.8-13.1) H 09/24/17 12:40 INR 1.2 (0.9-1.2) 09/24/17 12:40 APTT 31.2 Seconds (25.6-37.1) 09/24/17 12:40 - Constitutional Appears: Confused, Chronically Ill - Head Exam Head Exam: ATRAUMATIC, NORMAL INSPECTION, NORMOCEPHALIC - Eye Exam Eye Exam: EOMI, Normal appearance - Neck Exam Neck Exam: Full ROM - Respiratory Exam Respiratory Exam: Decreased Breath Sounds - Cardiovascular Exam Cardiovascular Exam: REGULAR RHYTHM, +S1, +S2 - GI/Abdominal Exam GI & Abdominal Exam: Normal Bowel Sounds - Neurological Exam Neurological Exam: Altered - Psychiatric Exam Psychiatric exam: Depressed Assessment and Plan (1) Delirium Status: Acute (2) Anemia Status: Acute (3) Dehydration Status: Acute (4) Hypokalemia Status: Acute (5) Hypoxia Status: Acute (6) Lung cancer Status: Chronic (7) Metastatic lung cancer (metastasis from lung to other site) Status: Chronic (8) Small cell lung cancer Status: Chronic (9) Brain metastasis Status: Chronic (10) Depression Status: Chronic (11) Failure to thrive Status: Acute
[2017-10-01] MEDS: Dextrose 5%/0.45% NS 1,000 ML IV SCH ×2 (11:30→23:06)
[2017-10-02 09:10] LABS: BLOOD UREA NITROGEN 8 mg/dl (7-17)
[2017-10-02 09:11] LABS: CALCIUM 9.6 mg/dL (8.4-10.2); GFR AFRICAN-AMERICAN > 60; GFR NON-AFRICAN AMERICAN > 60
--- NOTE | 2017-10-02 11:20 | CP.PCM.PN ---
Subjective - Date & Time of Evaluation Date of Evaluation: 10/02/17 Time of Evaluation: 17:22 - Subjective Subjective: No new changes Objective - Vital Signs/Intake and Output Vital Signs (last 24 hours): Temp Pulse Resp BP Pulse Ox 98.6 F 107 H 18 115/65 94 L 10/02/17 08:00 10/02/17 08:00 10/02/17 08:00 10/02/17 08:00 10/02/17 09:00 - Medications Medications: Current Medications Citalopram Hydrobromide (Celexa) 20 mg PO DAILY [facility] Last Admin: 10/02/17 08:49 Dose: 20 mg Clonazepam (Klonopin) 1 mg PO TID [facility] Last Admin: 10/02/17 08:53 Dose: 1 mg Dexamethasone (Decadron) 4 mg PO Q12 [facility] Last Admin: 10/02/17 08:49 Dose: 4 mg Fentanyl (Duragesic) 1 patch TD Q3D [facility] PRN Reason: Protocol Last Admin: 09/29/17 22:08 Dose: 1 patch Morphine Sulfate (Morphine) 1 mg IVP Q4 PRN PRN Reason: Pain, severe (8-10) Last Admin: 10/01/17 17:56 Dose: 1 mg Quetiapine Fumarate (Seroquel) 100 mg PO BID [facility] Last Admin: 10/02/17 08:50 Dose: 100 mg Tramadol HCl (Ultram) 50 mg PO BID PRN PRN Reason: Pain, moderate (4-7) Trazodone HCl (Desyrel) 150 mg PO HS [facility] Last Admin: 10/01/17 21:47 Dose: 150 mg - Labs Labs: 10/01/17 06:00 10/02/17 07:00 PT 13.5 Seconds (9.8-13.1) H 09/24/17 12:40 INR 1.2 (0.9-1.2) 09/24/17 12:40 APTT 31.2 Seconds (25.6-37.1) 09/24/17 12:40 - Constitutional Appears: Confused, Chronically Ill - Head Exam Head Exam: NORMAL INSPECTION - Eye Exam Eye Exam: Normal appearance - ENT Exam ENT Exam: Mucous Membranes Moist - Neck Exam Neck Exam: Full ROM - Respiratory Exam Respiratory Exam: Clear to Ausculation Bilateral - Cardiovascular Exam Cardiovascular Exam: REGULAR RHYTHM, +S1, +S2 - GI/Abdominal Exam GI & Abdominal Exam: Normal Bowel Sounds - Extremities Exam Extremities Exam: Normal Inspection - Neurological Exam Neurological Exam: Altered - Psychiatric Exam Psychiatric exam: Anxious, Depressed Assessment and Plan (1) Delirium Status: Acute (2) Anemia Status: Acute (3) Dehydration Status: Acute (4) Hypokalemia Status: Acute (5) Hypoxia Status: Acute (6) Lung cancer Status: Chronic (7) Metastatic lung cancer (metastasis from lung to other site) Status: Chronic (8) Small cell lung cancer Status: Chronic (9) Brain metastasis Status: Chronic (10) Depression Status: Chronic (11) Failure to thrive Status: Acute
[2017-10-02] MEDS ORDERED: Potassium Chloride 20 mEq/15 ml LIQ UD PO ONE (12:06)
[2017-10-02] MEDS: Dextrose 5%/0.45% NS 1,000 ML IV SCH (12:59)
[2017-10-03 08:59] LABS: BLOOD UREA NITROGEN 9 mg/dl (7-17); GFR AFRICAN-AMERICAN > 60; GFR NON-AFRICAN AMERICAN > 60
--- NOTE | 2017-10-03 18:39 | CP.PCM.PN ---
Subjective - Date & Time of Evaluation Date of Evaluation: 10/03/17 Time of Evaluation: 18:39 - Subjective Subjective: General condition not changed,confuse. Objective - Vital Signs/Intake and Output Vital Signs (last 24 hours): Temp Pulse Resp BP Pulse Ox 98.7 F 95 H 93 H 109/66 94 L 10/03/17 15:53 10/03/17 16:39 10/03/17 16:39 10/03/17 15:53 10/03/17 15:53 - Medications Medications: Current Medications Citalopram Hydrobromide (Celexa) 20 mg PO DAILY [facility] Last Admin: 10/03/17 08:30 Dose: 20 mg Dexamethasone (Decadron) 4 mg PO Q12 [facility] Last Admin: 10/03/17 08:29 Dose: 4 mg Fentanyl (Duragesic) 1 patch TD Q3D [facility] PRN Reason: Protocol Last Admin: 10/03/17 18:09 Dose: 1 patch Morphine Sulfate (Morphine) 1 mg IVP Q4 PRN PRN Reason: Pain, severe (8-10) Last Admin: 10/03/17 00:20 Dose: 1 mg Quetiapine Fumarate (Seroquel) 100 mg PO BID [facility] Last Admin: 10/03/17 18:11 Dose: 100 mg Trazodone HCl (Desyrel) 150 mg PO HS [facility] Last Admin: 10/02/17 21:22 Dose: 150 mg - Labs Labs: 10/01/17 06:00 10/03/17 07:15 PT 13.5 Seconds (9.8-13.1) H 09/24/17 12:40 INR 1.2 (0.9-1.2) 09/24/17 12:40 APTT 31.2 Seconds (25.6-37.1) 09/24/17 12:40 - Constitutional Appears: Agitated, Confused, Chronically Ill - Head Exam Head Exam: ATRAUMATIC, NORMAL INSPECTION, NORMOCEPHALIC - Eye Exam Eye Exam: Normal appearance - ENT Exam ENT Exam: Mucous Membranes Moist - Neck Exam Neck Exam: Full ROM - Respiratory Exam Respiratory Exam: Decreased Breath Sounds - Cardiovascular Exam Cardiovascular Exam: REGULAR RHYTHM, +S1, +S2 - GI/Abdominal Exam GI & Abdominal Exam: Soft, Normal Bowel Sounds - Extremities Exam Extremities Exam: Normal Inspection - Neurological Exam Neurological Exam: Alert, Altered, Awake - Psychiatric Exam Psychiatric exam: Anxious, Depressed - Skin Skin Exam: Pallor Assessment and Plan (1) Delirium Status: Acute (2) Anemia Status: Acute (3) Dehydration Status: Acute (4) Hypokalemia Status: Acute (5) Hypoxia Status: Acute (6) Lung cancer Status: Chronic (7) Metastatic lung cancer (metastasis from lung to other site) Status: Chronic (8) Small cell lung cancer Status: Chronic (9) Brain metastasis Status: Chronic (10) Depression Status: Chronic (11) Failure to thrive Status: Acute
[2017-10-04] MEDS ORDERED: Albuterol-Ipratrop 3 mg / 0.5 (3 ml) UD INH PRN (06:24)
[2017-10-05] MEDS ORDERED: HYDROmorphone 0.5 mg/0.5 ml ISec IVP ONE (02:40)
--- NOTE | 2017-10-05 11:16 | CP.PCM.PN ---
Subjective - Date & Time of Evaluation Date of Evaluation: 10/05/17 Time of Evaluation: 11:16 - Subjective Subjective: No new changes in patient general condition Objective - Vital Signs/Intake and Output Vital Signs (last 24 hours): Temp Pulse Resp BP Pulse Ox 98.0 F 103 H 18 101/59 L 92 L 10/05/17 08:00 10/05/17 08:00 10/05/17 08:00 10/05/17 08:00 10/05/17 08:00 - Medications Medications: Current Medications Acetaminophen (Tylenol 325mg Tab) 650 mg PO Q6 PRN PRN Reason: Pain, Mild (1-3) Albuterol/Ipratropium (Duoneb 3 Mg/0.5 Mg (3 Ml) Ud) 3 ml INH RQ6 PRN PRN Reason: Shortness of Breath Citalopram Hydrobromide (Celexa) 20 mg PO DAILY [facility] Last Admin: 10/05/17 10:22 Dose: 20 mg Clonazepam (Klonopin) 1 mg PO TID PRN PRN Reason: Agitation Last Admin: 10/04/17 17:08 Dose: 1 mg Fentanyl (Duragesic) 1 patch TD Q3D [facility] PRN Reason: Protocol Last Admin: 10/03/17 18:09 Dose: 1 patch Hydromorphone HCl (Dilaudid) 0.5 mg IVP Q4 PRN PRN Reason: Pain, moderate (4-7) Stop: 10/07/17 10:52 Quetiapine Fumarate (Seroquel) 100 mg PO BID [facility] Last Admin: 10/05/17 10:22 Dose: 100 mg Trazodone HCl (Desyrel) 150 mg PO HS [facility] Last Admin: 10/04/17 22:55 Dose: 150 mg - Labs Labs: 10/01/17 06:00 10/03/17 07:15 PT 13.5 Seconds (9.8-13.1) H 09/24/17 12:40 INR 1.2 (0.9-1.2) 09/24/17 12:40 APTT 31.2 Seconds (25.6-37.1) 09/24/17 12:40 - Constitutional Appears: Confused, Chronically Ill - Head Exam Head Exam: ATRAUMATIC, NORMAL INSPECTION, NORMOCEPHALIC - ENT Exam ENT Exam: Mucous Membranes Moist - Neck Exam Neck Exam: Full ROM - Respiratory Exam Respiratory Exam: Decreased Breath Sounds - Cardiovascular Exam Cardiovascular Exam: REGULAR RHYTHM, +S1, +S2 - GI/Abdominal Exam GI & Abdominal Exam: Soft, Normal Bowel Sounds - Neurological Exam Neurological Exam: Altered, Awake, CN II-XII Intact - Psychiatric Exam Psychiatric exam: Anxious, Depressed Assessment and Plan (1) Delirium Status: Acute (2) Anemia Status: Acute (3) Dehydration Status: Acute (4) Hypokalemia Status: Acute (5) Hypoxia Status: Acute (6) Lung cancer Status: Chronic (7) Metastatic lung cancer (metastasis from lung to other site) Status: Chronic (8) Small cell lung cancer Status: Chronic (9) Brain metastasis Status: Chronic (10) Depression Status: Chronic (11) Failure to thrive Status: Acute - Assessment and Plan (Free Text) Plan: Continue present rx
--- NOTE | 2017-10-06 18:00 | CP.PCM.PN ---
Subjective - Date & Time of Evaluation Date of Evaluation: 10/06/17 Time of Evaluation: 18:00 - Subjective Subjective: No new changes Objective - Vital Signs/Intake and Output Vital Signs (last 24 hours): Temp Pulse Resp BP Pulse Ox 98.9 F 101 H 17 112/66 95 10/06/17 16:08 10/06/17 16:08 10/06/17 16:08 10/06/17 16:08 10/06/17 16:08 - Medications Medications: Current Medications Acetaminophen (Tylenol 325mg Tab) 650 mg PO Q6 PRN PRN Reason: Pain, Mild (1-3) Albuterol/Ipratropium (Duoneb 3 Mg/0.5 Mg (3 Ml) Ud) 3 ml INH RQ6 PRN PRN Reason: Shortness of Breath Citalopram Hydrobromide (Celexa) 20 mg PO DAILY [facility] Last Admin: 10/06/17 10:18 Dose: 20 mg Clonazepam (Klonopin) 1 mg PO TID PRN PRN Reason: Agitation Last Admin: 10/04/17 17:08 Dose: 1 mg Hydromorphone HCl (Dilaudid) 0.5 mg IVP Q4 PRN PRN Reason: Pain, moderate (4-7) Stop: 10/07/17 10:52 Quetiapine Fumarate (Seroquel) 100 mg PO BID [facility] Last Admin: 10/06/17 16:53 Dose: 100 mg Trazodone HCl (Desyrel) [address] [facility] Last Admin: 10/05/17 22:40 Dose: 150 mg - Labs Labs: 10/01/17 06:00 10/03/17 07:15 PT 13.5 Seconds (9.8-13.1) H 09/24/17 12:40 INR 1.2 (0.9-1.2) 09/24/17 12:40 APTT 31.2 Seconds (25.6-37.1) 09/24/17 12:40 - Constitutional Appears: Confused, Chronically Ill - Head Exam Head Exam: ATRAUMATIC, NORMAL INSPECTION, NORMOCEPHALIC - Eye Exam Eye Exam: Normal appearance - ENT Exam ENT Exam: Mucous Membranes Moist - Neck Exam Neck Exam: Full ROM - Respiratory Exam Respiratory Exam: Clear to Ausculation Bilateral - Cardiovascular Exam Cardiovascular Exam: REGULAR RHYTHM, +S1, +S2 - GI/Abdominal Exam GI & Abdominal Exam: Soft, Normal Bowel Sounds - Rectal Exam Rectal Exam: NORMAL INSPECTION - Neurological Exam Neurological Exam: Alert, Altered, Awake - Psychiatric Exam Psychiatric exam: Anxious, Depressed Assessment and Plan (1) Delirium Status: Acute (2) Anemia Status: Acute (3) Dehydration Status: Acute (4) Hypokalemia Status: Acute (5) Hypoxia Status: Acute (6) Lung cancer Status: Chronic (7) Metastatic lung cancer (metastasis from lung to other site) Status: Chronic (8) Small cell lung cancer Status: Chronic (9) Brain metastasis Status: Chronic (10) Depression Status: Chronic (11) Failure to thrive Status: Acute - Assessment and Plan (Free Text) Plan: Continue present rx.
--- NOTE | 2017-10-07 20:29 | CP.PCM.PN ---
Subjective - Date & Time of Evaluation Date of Evaluation: 10/07/17 Time of Evaluation: 13:30 - Subjective Subjective: Still confuse, will restart steroid. Objective - Vital Signs/Intake and Output Vital Signs (last 24 hours): Temp Pulse Resp BP Pulse Ox 98.9 F 103 H 20 94/57 L 95 10/07/17 16:36 10/07/17 16:36 10/07/17 16:36 10/07/17 16:36 10/07/17 16:36 Intake and Output: 10/07/17 10/07/17 11:59 23:59 Intake Total 300 Balance 300 - Medications Medications: Current Medications Acetaminophen (Tylenol 325mg Tab) 650 mg PO Q6 PRN PRN Reason: Pain, Mild (1-3) Albuterol/Ipratropium (Duoneb 3 Mg/0.5 Mg (3 Ml) Ud) 3 ml INH RQ6 PRN PRN Reason: Shortness of Breath Citalopram Hydrobromide (Celexa) 20 mg PO DAILY [facility] Last Admin: 10/07/17 08:43 Dose: 20 mg Clonazepam (Klonopin) 1 mg PO TID [facility] Last Admin: 10/07/17 17:00 Dose: 1 mg Dexamethasone (Decadron) 4 mg PO Q12 [facility] Last Admin: 10/07/17 12:48 Dose: 4 mg Hydromorphone HCl (Dilaudid) 1 mg IVP Q4 PRN PRN Reason: Pain, severe (8-10) Quetiapine Fumarate (Seroquel) 100 mg PO BID [facility] Last Admin: 10/07/17 17:00 Dose: 100 mg Trazodone HCl (Desyrel) 150 mg PO HS [facility] Last Admin: 10/06/17 22:48 Dose: 150 mg - Labs Labs: 10/01/17 06:00 10/03/17 07:15 PT 13.5 Seconds (9.8-13.1) H 09/24/17 12:40 INR 1.2 (0.9-1.2) 09/24/17 12:40 APTT 31.2 Seconds (25.6-37.1) 09/24/17 12:40 - Constitutional Appears: Confused, Chronically Ill - Head Exam Head Exam: NORMAL INSPECTION - Eye Exam Eye Exam: Normal appearance - Cardiovascular Exam Cardiovascular Exam: REGULAR RHYTHM, +S1, +S2 - GI/Abdominal Exam GI & Abdominal Exam: Normal Bowel Sounds - Neurological Exam Neurological Exam: Altered - Psychiatric Exam Psychiatric exam: Anxious, Depressed Assessment and Plan (1) Delirium Status: Acute (2) Anemia Status: Acute (3) Dehydration Status: Acute (4) Hypokalemia Status: Acute (5) Hypoxia Status: Acute (6) Lung cancer Status: Chronic (7) Metastatic lung cancer (metastasis from lung to other site) Status: Chronic (8) Small cell lung cancer Status: Chronic (9) Brain metastasis Status: Chronic (10) Depression Status: Chronic (11) Failure to thrive Status: Acute
--- NOTE | 2017-10-08 19:18 | CP.PCM.PN ---
Subjective - Date & Time of Evaluation Date of Evaluation: 10/08/17 Time of Evaluation: 11:15 - Subjective Subjective: Patient still confuse. Continue 1:1 Objective - Vital Signs/Intake and Output Vital Signs (last 24 hours): Temp Pulse Resp BP Pulse Ox 98.1 F 106 H 20 102/56 L 92 L 10/08/17 17:23 10/08/17 17:23 10/08/17 17:23 10/08/17 17:23 10/08/17 17:23 Intake and Output: 10/08/17 10/08/17 11:59 23:59 Intake Total 620 Balance 620 - Medications Medications: Current Medications Acetaminophen (Tylenol 325mg Tab) 650 mg PO Q6 PRN PRN Reason: Pain, Mild (1-3) Albuterol/Ipratropium (Duoneb 3 Mg/0.5 Mg (3 Ml) Ud) 3 ml INH RQ6 PRN PRN Reason: Shortness of Breath Citalopram Hydrobromide (Celexa) 20 mg PO DAILY [facility] Last Admin: 10/08/17 09:35 Dose: 20 mg Clonazepam (Klonopin) 1 mg PO TID [facility] Last Admin: 10/08/17 17:05 Dose: 1 mg Dexamethasone (Decadron) 4 mg PO Q12 [facility] Last Admin: 10/08/17 09:36 Dose: 4 mg Hydromorphone HCl (Dilaudid) 1 mg IVP Q4 PRN PRN Reason: Pain, severe (8-10) Quetiapine Fumarate (Seroquel) 100 mg PO BID [facility] Last Admin: 10/08/17 17:05 Dose: 100 mg Trazodone HCl (Desyrel) 150 mg PO HS [facility] Last Admin: 10/07/17 21:18 Dose: 150 mg - Labs Labs: 10/01/17 06:00 10/03/17 07:15 PT 13.5 Seconds (9.8-13.1) H 09/24/17 12:40 INR 1.2 (0.9-1.2) 09/24/17 12:40 APTT 31.2 Seconds (25.6-37.1) 09/24/17 12:40 - Constitutional Appears: Confused, Chronically Ill - Head Exam Head Exam: ATRAUMATIC, NORMAL INSPECTION, NORMOCEPHALIC - Eye Exam Eye Exam: Normal appearance - Cardiovascular Exam Cardiovascular Exam: REGULAR RHYTHM, +S1, +S2 - GI/Abdominal Exam GI & Abdominal Exam: Normal Bowel Sounds - Extremities Exam Extremities Exam: Normal Inspection - Neurological Exam Neurological Exam: Altered - Psychiatric Exam Psychiatric exam: Anxious, Depressed Assessment and Plan (1) Delirium Status: Acute (2) Anemia Status: Acute (3) Dehydration Status: Acute (4) Hypokalemia Status: Acute (5) Hypoxia Status: Acute (6) Lung cancer Status: Chronic (7) Metastatic lung cancer (metastasis from lung to other site) Status: Chronic (8) Small cell lung cancer Status: Chronic (9) Brain metastasis Status: Chronic (10) Depression Status: Chronic (11) Failure to thrive Status: Acute
[2017-10-09] MEDS: Pantoprazole 40 mg EC Tab PO SCH ×2 (00:49→08:44)
--- NOTE | 2017-10-09 16:49 | CP.PCM.PN ---
Subjective - Date & Time of Evaluation Date of Evaluation: 10/09/17 Time of Evaluation: 16:50 - Subjective Subjective: No new changes still confuse For palliative care 1:1 Objective - Vital Signs/Intake and Output Vital Signs (last 24 hours): Temp Pulse Resp BP Pulse Ox 99.1 F 115 H 20 95/56 L 87 L 10/09/17 16:15 10/09/17 16:15 10/09/17 16:15 10/09/17 16:15 10/09/17 16:15 - Medications Medications: Current Medications Acetaminophen (Tylenol 325mg Tab) 650 mg PO Q6 PRN PRN Reason: Pain, Mild (1-3) Albuterol/Ipratropium (Duoneb 3 Mg/0.5 Mg (3 Ml) Ud) 3 ml INH RQ6 PRN PRN Reason: Shortness of Breath Citalopram Hydrobromide (Celexa) 20 mg PO DAILY [facility] Last Admin: 10/09/17 08:44 Dose: 20 mg Clonazepam (Klonopin) 1 mg PO TID [facility] Last Admin: 10/09/17 12:56 Dose: Not Given Dexamethasone (Decadron) 4 mg PO Q12 [facility] Last Admin: 10/09/17 08:44 Dose: 4 mg Fentanyl (Duragesic) 1 patch TD Q3D [facility] PRN Reason: Protocol Last Admin: 10/09/17 12:12 Dose: 1 patch Hydromorphone HCl (Dilaudid) 1 mg IVP Q4 PRN PRN Reason: Pain, severe (8-10) Pantoprazole Sodium (Protonix Ec Tab) 40 mg PO DAILY [facility] Last Admin: 10/09/17 08:44 Dose: 40 mg Quetiapine Fumarate (Seroquel) 100 mg PO BID [facility] Last Admin: 10/09/17 08:45 Dose: 100 mg Trazodone HCl (Desyrel) 150 mg PO HS [facility] Last Admin: 10/08/17 21:45 Dose: 150 mg - Labs Labs: 10/01/17 06:00 10/03/17 07:15 PT 13.5 Seconds (9.8-13.1) H 09/24/17 12:40 INR 1.2 (0.9-1.2) 09/24/17 12:40 APTT 31.2 Seconds (25.6-37.1) 09/24/17 12:40 - Constitutional Appears: Confused, Chronically Ill - Head Exam Head Exam: NORMAL INSPECTION - Eye Exam Eye Exam: Normal appearance - ENT Exam ENT Exam: Normal Exam - Neck Exam Neck Exam: Normal Inspection - Respiratory Exam Respiratory Exam: Decreased Breath Sounds, NORMAL BREATHING PATTERN - Cardiovascular Exam Cardiovascular Exam: REGULAR RHYTHM, +S1, +S2 - GI/Abdominal Exam GI & Abdominal Exam: Normal Bowel Sounds - Rectal Exam Rectal Exam: NORMAL INSPECTION - Extremities Exam Extremities Exam: Full ROM - Neurological Exam Neurological Exam: Altered - Psychiatric Exam Psychiatric exam: Anxious, Depressed Assessment and Plan (1) Delirium Status: Acute (2) Anemia Status: Acute (3) Dehydration Status: Acute (4) Hypokalemia Status: Acute (5) Hypoxia Status: Acute (6) Lung cancer Status: Chronic (7) Metastatic lung cancer (metastasis from lung to other site) Status: Chronic (8) Small cell lung cancer Status: Chronic (9) Brain metastasis Status: Chronic (10) Depression Status: Chronic (11) Failure to thrive Status: Acute
[2017-10-10 00:43] VITALS: RESP 18
[2017-10-10 08:40] VITALS: BP 102/68; PULSE 115; TEMP 98.4; O2SAT 85
[2017-10-10] MEDS: Pantoprazole 40 mg EC Tab PO SCH (09:06)
[2017-10-10] MEDS ORDERED: Sodium Chloride 0.9% 1,000 ML IV SCH (11:15)
--- NOTE | 2017-10-10 12:00 | PCM.RRT ---
SALES SUPPORT REPRESENTATIVE Nurse Assessment - Situation SALES SUPPORT REPRESENTATIVE Reason for Call: Tachycardia, Hypotension, O2 Saturation below 90% I.Reason for SALES SUPPORT REPRESENTATIVE - A) Acute Change in Patient: Subjective: SALES SUPPORT REPRESENTATIVE Time: 10:59 SALES SUPPORT REPRESENTATIVE Arrival: 11:00 SALES SUPPORT REPRESENTATIVE Location: [facility]- S: SALES SUPPORT REPRESENTATIVE was called by RN on a 62 y/o F due to hypotension, tachycardia and oxygen desaturation. Pt was lying on bed, confused, receiving care by nurses. O: -Vital signs: BP 87/58, HR 125, O2 sat 81%, and oral temp 99.4 degF, serum glucoes: 164mg/dL. -Physical exam: >Gen: Pt lethargic, non-verbal, dyspneic. >Neck: No stiffness. >CV: tachycardia, S1 adn S2 present. >Lungs: No wheezing or crakles. >EXT: No cyanosis, no peripheral edema. SALES SUPPORT REPRESENTATIVE Interventions: - Pt's position was re-adjusted on bed. - Pt was placed on a [id number] oxygen mask. - Temperature by rectum measured: 102.4degF. - IV fluids ordered. - Tylenol per rectum applied. - Primary care team made aware of SALES SUPPORT REPRESENTATIVE. Repeated vital signs: BP 92/61, HR 124, Sat O2 97%, oral temp 99.9degF. A/P: 62 y/o F with a PMHx of metastatic lung malignancy, severe depression and "DNR" status with fever, hypotension, tachycardia and dyspnea. - Continue with IV NSS 0.9% bolus. - PRN Tylenol per rectum. - Monitor vital signs. - Continue comfort care as per primary team. - Hospice medicine evaluation necessary. SALES SUPPORT REPRESENTATIVE End: 11:14 SALES SUPPORT REPRESENTATIVE Leader: Dr Rodriguez. SALES SUPPORT REPRESENTATIVE Resident: Dr Padilla PGY-1.
--- NOTE | 2017-10-10 13:20 | CP.PCM.PN ---
Subjective - Date & Time of Evaluation Date of Evaluation: 10/10/17 Time of Evaluation: 13:21 - Subjective Subjective: Patient condition deteriorating, hypotensive , hypoxic, lethargic. Case discussed with family they want to place on hospice care. Objective - Vital Signs/Intake and Output Vital Signs (last 24 hours): Temp Pulse Resp BP Pulse Ox 98.4 F 115 H 18 102/68 85 L 10/10/17 08:39 10/10/17 08:39 10/10/17 08:39 10/10/17 08:39 10/10/17 08:39 - Medications Medications: Current Medications Acetaminophen (Tylenol 325mg Tab) 650 mg PO Q6 PRN PRN Reason: Pain, Mild (1-3) Acetaminophen (Tylenol 650 Mg Supp) 650 mg [place] Q6 PRN PRN Reason: Fever >100.4 F Albuterol/Ipratropium (Duoneb 3 Mg/0.5 Mg (3 Ml) Ud) 3 ml INH RQ6 PRN PRN Reason: Shortness of Breath Last Admin: 10/10/17 11:20 Dose: 3 ml Citalopram Hydrobromide (Celexa) 20 mg PO DAILY [facility] Last Admin: 10/10/17 09:06 Dose: 20 mg Clonazepam (Klonopin) 1 mg PO TID [facility] Last Admin: 10/10/17 09:19 Dose: 1 mg Dexamethasone (Decadron) 4 mg PO Q12 [facility] Last Admin: 10/10/17 09:06 Dose: 4 mg Fentanyl (Duragesic) 1 patch TD Q3D [facility] PRN Reason: Protocol Last Admin: 10/09/17 12:12 Dose: 1 patch Hydromorphone HCl (Dilaudid) 1 mg IVP Q4 PRN PRN Reason: Pain, severe (8-10) Sodium Chloride (Sodium Chloride 0.9%) 1,000 mls @ 999 mls/hr IV .Q1H1M [facility] Stop: 10/11/17 11:05 Pantoprazole Sodium (Protonix Ec Tab) 40 mg PO DAILY [facility] Last Admin: 10/10/17 09:06 Dose: 40 mg Quetiapine Fumarate (Seroquel) 100 mg PO BID [facility] Last Admin: 10/10/17 09:06 Dose: 100 mg Trazodone HCl (Desyrel) 150 mg PO HS [facility] Last Admin: 10/09/17 21:44 Dose: 150 mg - Labs Labs: 10/01/17 06:00 10/03/17 07:15 PT 13.5 Seconds (9.8-13.1) H 09/24/17 12:40 INR 1.2 (0.9-1.2) 09/24/17 12:40 APTT 31.2 Seconds (25.6-37.1) 09/24/17 12:40 - Constitutional Appears: Chronically Ill - Head Exam Head Exam: ATRAUMATIC, NORMAL INSPECTION, NORMOCEPHALIC - Eye Exam Eye Exam: Normal appearance - ENT Exam ENT Exam: Mucous Membranes Moist - Respiratory Exam Respiratory Exam: Decreased Breath Sounds - Cardiovascular Exam Cardiovascular Exam: REGULAR RHYTHM, +S1, +S2 - GI/Abdominal Exam GI & Abdominal Exam: Normal Bowel Sounds - Neurological Exam Neurological Exam: Altered Assessment and Plan (1) Delirium Status: Acute (2) Anemia Status: Acute (3) Dehydration Status: Acute (4) Hypokalemia Status: Acute (5) Hypoxia Status: Acute (6) Lung cancer Status: Chronic (7) Metastatic lung cancer (metastasis from lung to other site) Status: Chronic (8) Small cell lung cancer Status: Chronic (9) Brain metastasis Status: Chronic (10) Depression Status: Chronic (11) Failure to thrive Status: Acute - Assessment and Plan (Free Text) Plan: For hospice care.
--- NOTE | 2017-10-11 05:51 | CP.PCM.DIS ---
Provider - Provider Date of Admission: 09/24/17 16:38 Attending physician: Basilio Lewis MD Time Spent in preparation of Discharge (in minutes): 30 Diagnosis - Discharge Diagnosis (1) Delirium Status: Acute (2) Anemia Status: Acute (3) Dehydration Status: Acute (4) Hypokalemia Status: Acute (5) Hypoxia Status: Acute (6) Lung cancer Status: Chronic (7) Metastatic lung cancer (metastasis from lung to other site) Status: Chronic (8) Small cell lung cancer Status: Chronic (9) Brain metastasis Status: Chronic (10) Depression Status: Chronic (11) Failure to thrive Status: Acute Hospital Course - Lab Results Lab Results: Most Recent Lab Values WBC 9.7 K/uL (4.8-10.8) 10/01/17 06:00 RBC 3.59 Mil/uL (3.80-5.20) L 10/01/17 06:00 Hgb 10.1 g/dL (12.0-16.0) L 10/01/17 06:00 Hct 31.6 % (34.0-47.0) L 10/01/17 06:00 MCV 87.9 fl (81.0-99.0) 10/01/17 06:00 MCH 28.1 pg (27.0-31.0) 10/01/17 06:00 MCHC 32.0 g/dL (33.0-37.0) L 10/01/17 06:00 RDW 17.5 % (11.5-14.5) H 10/01/17 06:00 Plt Count 353 K/uL (130-400) 10/01/17 06:00 MPV 7.5 fl (7.2-11.7) 09/24/17 12:40 Neut % (Auto) 79.2 % (50.0-75.0) H 09/24/17 12:40 Lymph % (Auto) 6.1 % (20.0-40.0) L 09/24/17 12:40 Knott % (Auto) 13.6 % (0.0-10.0) H 09/24/17 12:40 Eos % (Auto) 0.4 % (0.0-4.0) 09/24/17 12:40 Baso % (Auto) 0.7 % (0.0-2.0) 09/24/17 12:40 Neut # 7.4 K/uL (1.8-7.0) H 09/24/17 12:40 Lymph # 0.6 K/uL (1.0-4.3) L 09/24/17 12:40 Knott # 1.3 K/uL (0.0-0.8) H 09/24/17 12:40 Eos # 0.0 K/uL (0.0-0.7) 09/24/17 12:40 Baso # 0.1 K/uL (0.0-0.2) 09/24/17 12:40 Neutrophils % (Manual) 83 % (42-75) H 09/24/17 12:40 Lymphocytes % (Manual) 2 % (20-50) L 09/24/17 12:40 Monocytes % (Manual) 14 % (0-10) H 09/24/17 12:40 Eosinophils % (Manual) 1 % (0-7) 09/24/17 12:40 Platelet Estimate Normal (NORMAL) 09/24/17 12:40 Hypochromasia (manual) Slight 09/24/17 12:40 Anisocytosis (manual) Slight 09/24/17 12:40 Tear Drop Cells Slight 09/24/17 12:40 Ovalocytes Slight 09/24/17 12:40 Schistocytes Slight 09/24/17 12:40 PT 13.5 Seconds (9.8-13.1) H 09/24/17 12:40 INR 1.2 (0.9-1.2) 09/24/17 12:40 APTT 31.2 Seconds (25.6-37.1) 09/24/17 12:40 Sodium 137 mmol/l (132-148) 10/03/17 07:15 Potassium 4.1 MMOL/L (3.6-5.0) 10/03/17 07:15 Chloride 100 mmol/L (98-107) 10/03/17 07:15 Carbon Dioxide 32 mmol/L (22-30) H 10/03/17 07:15 Anion Gap 9 (10-20) L 10/03/17 07:15 BUN 9 mg/dl (7-17) 10/03/17 07:15 Creatinine 0.5 mg/dl (0.7-1.2) L 10/03/17 07:15 Est GFR ( Amer) > 60 10/03/17 07:15 Est GFR (Non-Af Amer) > 60 10/03/17 07:15 Random Glucose 118 mg/dL (65-105) H 10/03/17 07:15 POC Glucose (mg/dL) 164 mg/dL (65-110) H 10/10/17 11:02 Calcium 10.0 mg/dL (8.4-10.2) 10/03/17 07:15 Total Bilirubin 0.4 mg/dl (0.2-1.3) 09/24/17 12:40 AST 51 U/L (14-36) H 09/24/17 12:40 ALT 33 U/L (9-52) 09/24/17 12:40 Alkaline Phosphatase 79 U/L (38-126) 09/24/17 12:40 Total Protein 5.9 G/DL (6.3-8.2) L 09/24/17 12:40 Albumin 3.1 g/dL (3.5-5.0) L 09/24/17 12:40 Globulin 2.8 gm/dL (2.2-3.9) 09/24/17 12:40 Albumin/Globulin Ratio 1.1 (1.0-2.1) 09/24/17 12:40 - Hospital Course Hospital Course: 61 y/o female history of metastatic lung cancer and severe depression, presents to the ED complaining of abdominal pain, onset. She presented in ER with family members, they states that she is confuse not oriented. Patient recently moved up from [place] to be with family members, and state that the patient has generally been "feeling bad, is confused more so than before, and has been falling". The patient has been treated wit chemotherapy. She poorly responded to rx. The day of discharge her condition deteriorating and she was placed on hospice care. Present on Admission Discharge Exam - Head Exam Head Exam: ATRAUMATIC (as pre), NORMAL INSPECTION, NORMOCEPHALIC Additional comments: as per progress note on 10/10 Discharge Plan - Follow Up Plan Condition: FAIR
== END 2017-10-10 15:32 | DRG 181 ==
LOC: H.ER 10:53 → H.ERHOLD 16:38 → H.TEL 17:25 → H.MEDSURG1 10-06 18:50
PROVIDERS: ADMIT Internal Medicine; ATTEND Internal Medicine
DX: C34.90 Malignant neoplasm of unspecified part of unspecified bronchus or lung (principal); C79.31 Secondary malignant neoplasm of brain; C78.6 Secondary malignant neoplasm of retroperitoneum and peritoneum; E86.0 Dehydration; I95.9 Hypotension, unspecified; D35.00 Benign neoplasm of unspecified adrenal gland; D64.9 Anemia, unspecified; E87.6 Hypokalemia; F17.210 Nicotine dependence, cigarettes, uncomplicated; F32.9 Major depressive disorder, single episode, unspecified; G89.29 Other chronic pain; J44.9 Chronic obstructive pulmonary disease, unspecified; R09.02 Hypoxemia; R62.7 Adult failure to thrive; Z51.5 Encounter for palliative care; Z79.899 Other long term (current) drug therapy; Z85.118 Personal history of other malignant neoplasm of bronchus and lung; Z87.01 Personal history of pneumonia (recurrent); F41.9 Anxiety disorder, unspecified

== ENCOUNTER 2017-10-10 14:39 | Inpatient (IN) | payer OTHER ==
[2017-10-10 15:53] VITALS: BMI 19.5
[2017-10-10] MEDS ORDERED: Morphine 100 MG in Sodium Chloride 0.9% 100 ML IVPB SCH ×2 (16:00→19:30)
[2017-10-11 00:05] VITALS: BP 57/37; PULSE 130; RESP 28; TEMP 97.8; O2SAT 83
--- NOTE | 2017-10-11 03:05 | CP.PCM.PRO ---
Pronouncement of Note - Clinical Findings Physical Exam: No Response Verbal/Painful Stimuli, Absent Peripheral Pulses{ Carotid & Femoral}, Absent Heart & Breath Sounds, No Pupillary Light Reflex, No Corneal Reflex, Pupils Fixed & Dilated, Absence of Vital Signs - Notifications Pronouncement Notifications: Family Notified, Atending Notified Grounds Cleaner Notified: No - Autopsy Autopsy Requested: No - N.Edmundo Certificate [place]: [id number] Additional Comments: This patientr was on Hospice Management
== END 2017-10-11 04:10 | DRG 181 ==
LOC: H.MEDSURG1 15:53
PROVIDERS: ADMIT Internal Medicine; ATTEND Internal Medicine
DX: C34.90 Malignant neoplasm of unspecified part of unspecified bronchus or lung (principal); C79.31 Secondary malignant neoplasm of brain; C78.6 Secondary malignant neoplasm of retroperitoneum and peritoneum; G89.29 Other chronic pain; Z51.5 Encounter for palliative care